=== PATIENT | female | born 1990 | race Two or more races ===

== ENCOUNTER 2019-10-07 19:15 | Emergency (ER) ==
[~2019-10-07] VITALS: Ht 149.9 cm; Wt 48.4 kg
--- NOTE | 2019-10-07 20:09 | NUR ---
PATIENT HAS EPISODES OF SVT DURING COUGHING. PATIENT STATES THAT THIS HAS BEEN OCCURING FOR THE LAST THREE DAYS, PATIENT WEARS FITBIT WITH HEART RATE MONITOR AT HOME. THE HEART RATES WAS WITNESSED JUMPING UP TO 172BPM DURING COUGHING EPISODES. PATIENT'S HEART RATE WILL DECREASE WHEN COUGHING IS OVER AND DEEP BREATHING EXERCISES ARE PERFORMED.
--- NOTE | 2019-10-07 20:15 | NUR ---
MD AT BEDSIDE WITH PATIENT
[2019-10-07] MEDS ORDERED: ASPIRIN 81 MG TABLET CHEW ONE (20:23)
[2019-10-07] MEDS ORDERED: DILTIAZEM 5 MG/ML, 5ML ONE (20:24)
[2019-10-07] MEDS ORDERED: SODIUM CHLORIDE FLUSH 10ML SYR IVF ONE (20:30)
[2019-10-07] MEDS ORDERED: DILTIAZEM 5 MG/ML, 5ML IV ONE (20:30)
[2019-10-07] MEDS ORDERED: ASPIRIN 81 MG TABLET CHEW PO ONE (20:30)
--- NOTE | 2019-10-07 20:34 | NUR ---
PATIENT GIVEN MEDICATIONS, NO SIGNIFICANT CHANGE IN HEART RATE WITH CARDIZEM. WILL CONTINUE TO MONITOR PATIENT. FAMILY AT BEDSIDE WITH PATIENT.
[2019-10-07 20:40] LABS: BASOPHILS # (AUTO) 0.04 x10^3/uL (0-0.1); BASOPHILS % (AUTO) 0 % (0-1); EOSINOPHILS # (AUTO) 0.26 x10^3/uL (0-0.4); EOSINOPHILS % (AUTO) 3 % (1-7); LYMPHOCYTES # (AUTO) 2.79 x10^3/uL (1-3.4); LYMPHOCYTES % (AUTO) 31 % (22-44); MD NO; MEAN CORPUSCULAR HEMOGLOBIN 28.3 pg (27.0-34.8); MEAN CORPUSCULAR HGB CONC 32.1 g/dL (32.4-35.8); MEAN CORPUSCULAR VOLUME 88.4 fL (80-100); MEAN PLATELET VOLUME 8.9 fL (7.4-10.4); MONOCYTES # (AUTO) 0.82 x10^3/uL (0.2-0.8); MONOCYTES % (AUTO) 9 % (2-9); NEUTROPHILS # (AUTO) 5.07 x10^3/uL (1.8-6.8); NEUTROPHILS % (AUTO) 57 % (42-75); PLATELET COUNT 313 x10^3/uL (130-400); RED CELL DISTRIBUTION WIDTH 13.1 % (9.6-15.2)
[2019-10-07 20:47] LABS: ALANINE AMINOTRANSFERASE 22 U/L (12-78); ALBUMIN 3.9 g/dL (3.4-5.0); ANION GAP 10 mmol/L (5-15); CHLORIDE 111 mmol/L (98-107); CREATININE 0.64 mg/dL (0.55-1.02)
[2019-10-07 20:57] LABS: ALKALINE PHOSPHATASE 130 U/L (45-117); BILIRUBIN,TOTAL 0.2 mg/dL (0.2-1.0); TOTAL PROTEIN 8.7 g/dL (6.4-8.2)
--- NOTE | 2019-10-07 21:34 | NUR ---
PATIENT RESTING IN BED, NO NOTED NEEDS AT THIS TIME. WILL CONTINUE TO MONITOR. PATIENT TOLERATING INTERVENTIONS WELL.
[2019-10-07 23:09] VITALS: BP 111/74
== END 2019-10-07 23:11 | disposition home or self-care (01) ==
LOC: ED 23:00
DX: I47.1 Supraventricular tachycardia (principal)
CPT/HCPCS: 36415; 71045; 80053; 84443; 85025; 93005; 96374